=== PATIENT | male | born 1995 | race Two or more races ===

== ENCOUNTER 2022-09-03 12:18 | Emergency (ER) | payer MEDICAID, SELFPAY ==
--- NOTE | ~2022-09-03 | XR_ITS ---
EXAMINATION: XR ABDOMEN KUB CLINICAL INDICATION: Constipation COMPARISON: None available. TECHNIQUE: AP view of the abdomen. FINDINGS: No dilated bowel loops. Yyavuyek-ou-vrffp amount fecal material is present in the colon. No abnormal calcifications in the abdomen or pelvis. Skeletal structures are unremarkable. XR/XR KUB IMPRESSION: * No evidence of bowel obstruction. * Jjowxpqi-st-txmvo amount fecal material is present within the colon in this patient with history of constipation.
[2022-09-03 12:55] VITALS: BP 00/00; PULSE 98; RESP 18; TEMP 37.1; BMI 25.9
--- NOTE | 2022-09-03 12:55 | ED.ABDPAIN ---
HPI - Abdominal Pain General Chief Complaint: General Medical Stated Complaint: constiopation Time Seen by Provider: 09/03/22 16:27 Source: other Mode of arrival: ambulatory Limitations: other (Developmental delay) History of Present Illness HPI narrative: Patient comes in the emergency room accompanied by his caretakers from the long term. Patient has not had a bowel movement in 5 days. The uniform force captain states that patient has tried MiraLax, Colace, prune juice and patient has not had a bowel movement. Patient is unable to make his needs known. Patient does not seem in any pain. Patient has been eating and drinking as usual. Patient was seen in urgent care twice before coming here. Patient still has not had any bowel movement. The caretakers report the patient has not had any fever or chills. Also, approximately 2 months ago, patient started a new medication, glycopyrrolate to help with the chronic drooling. Related Data Previous Rx's Medication Instructions Recorded bisacodyl 10 mg/30 mL enema (Fleet 5 mg (15 mL) MA BID PRN 09/03/22 Bisacodyl) constipation #37 mL lactulose 10 gram/15 mL (15 mL) 10 g (15 mL) PO DAILY PRN 09/03/22 oral solution constipation #473 mL Allergies Allergy/AdvReac Type Severity Reaction Status Date / Time No Known Allergies Allergy Verified 09/03/22 12:58 Review of Systems Review of Systems Yes Unobtainable due to mental condition [facility] Past Medical History Medical History (Updated 09/03/22 @ 16:49 by Bertha Roy MD) Cognitive impairment Social History Social History Advance Directives: No Advance Directives Information Provided: Yes Physical Exam ED Vital Signs: Vital Signs - 24 hr 09/03/22 12:55 09/03/22 16:25 Temperature 98.7 F Pulse Rate 98 54 Respiratory Rate 18 16 Blood Pressure 00/00 L 187/68 H Pulse Oximetry 99 Oxygen Delivery Method Room Air Room Air BMI result Body Mass Index 25.9 Const Other: Appearance: Alert. No acute distress Eyes: Pupils equal, round and reactive to light. ENT: Pharynx normal. Neck: Normal inspection. Neck supple. No lymph nodes noted. No crepitus CVS: Normal heart rate and rhythm. Pulses normal. Normal S1 and S2 Respiratory: No respiratory distress. Breath sounds normal. No Wheezing. No rales Abdomen: Soft and nontender. No rigidity. No distention. Skin: Skin warm and dry. Normal skin color. Normal skin turgor. Extremities: No lower extremity edema. No Lacerations. No Rash Neuro: Moving all extremities, patient nonverbal, unable to participating cranial nerve assessment Psych: calm, cooperative, normal affect Course Course Course Narrative: RME: 26yo M w/PMHx hemorrhoids, cognitive impariment, presenting from [facility] w/staff c/o constipation w/last BM on 08/29/22. Brought him to yesterday. Tried fluids, Miralax, hemorrhoid cream w/o relief Had XR yesterday which showed severe constipation . Admit patient is on glycopyrrolate for drooling which could be contributing to sx. Is passing gas KUB ordered Full HPI, ROS and PE to be performed by primary ED provider. Medical Decision Making Medical Decision Making MDM Narrative: -patient's symptoms likely secondary to glycopyrrolate -my interpretation of KUB: Severe constipation -patient given a soapsuds enema in the emergency room -Rx for home: Lactulose and plenty of water p.o. and mineral oil enemas p.r.n. Differential Diagnosis Differential Diagnoses: The differential diagnosis associated with the presentation includes (Constipation, obstruction) Radiology Impression Discussion of test interpretation with radiology: I have reviewed the radiologist's reading. Radiologist Impression: FINDINGS: No dilated bowel loops. Ceslmyye-ui-itgym amount fecal material is present in the colon. No abnormal calcifications in the abdomen or pelvis. Skeletal structures are unremarkable. XR/XR KUB IMPRESSION: *? No evidence of bowel obstruction. *? Jjyaovtq-vl-dgfhg amount fecal material is present within the colon in this patient with history of constipation. Discharge Plan Discharge Clinical Impression: Constipation Patient Disposition: Home, Self-Care Instructions: Constipation (ED) Additional Instructions: Please follow-up with your primary care physician tomorrow. If you have any worsening or new symptoms, please return to the emergency room or call 911 Prescriptions: New lactulose 10 gram/15 mL (15 mL) solution 10 g PO DAILY PRN (Reason: constipation) Qty: 473 0RF Fleet Bisacodyl 10 mg/30 mL enema 5 mg MA BID PRN (Reason: constipation) Qty: 37 2RF
[2022-09-03 16:25] VITALS: BP 187/68; PULSE 54; RESP 16; O2SAT 99
[2022-09-03 18:16] VITALS: BP 165/92; PULSE 69; RESP 17; O2SAT 98
[2022-09-03] MEDS: LORazepam 1 MG TABLET PO (18:22)
--- NOTE | 2022-09-03 18:36 | PC.NURSE ---
pt tolerated aprox 600ml soap suds enema. was able to transfer to [facility]. needs 2 person assist.
== END 2022-09-03 19:56 | disposition home or self-care (01) ==
PROVIDERS: Emergency Provider Emergency Medicine; PCP Internal Medicine Geriatric Medicine
DX: K59.00 Constipation, unspecified (principal); R10.2 Pelvic and perineal pain
CPT/HCPCS: 74018; 99282; 99284